=== PATIENT | female | born 1985 | race Caucasian/White ===

== ENCOUNTER 2017-07-14 06:06 | Day surgery (SDC) | payer OTHER ==
[2017-07-05 13:09] VITALS: BMI 27.1
[2017-07-14] MEDS ORDERED: DEXAMETHASONE SOD PHOSPHATE/PF 10 MG/ML SDV ONE (06:38)
[2017-07-14] MEDS ORDERED: SUCCINYLCHOLINE CHLORIDE 200 MG/10 ML VIAL ONE (06:41)
[2017-07-14] MEDS ORDERED: MIDAZOLAM HCL 2 MG/2 ML SINGLE DOSE VIAL ONE ×2 (06:41)
[2017-07-14] MEDS ORDERED: ONDANSETRON 4 MG/2 ML VIAL ONE (06:44)
[2017-07-14] MEDS ORDERED: DEXAMETHASONE SOD PHOSPHATE 4 MG/1 ML VIAL ONE (06:44)
[2017-07-14] MEDS ORDERED: LIDOCAINE HCL/PF 2% SDV 5ML VIAL ONE (06:44)
[2017-07-14] MEDS ORDERED: KETOROLAC TROMETHAMINE 30 MG/1 ML VIAL ONE (06:44)
[2017-07-14] MEDS ORDERED: LACTATED RINGERS SOLUTION 1,000 ML IV SCH (07:00)
[2017-07-14] MEDS ORDERED: oxyCODONE HCL 5 MG TABLET PO PRN ×2 (07:00)
[2017-07-14] MEDS ORDERED: ONDANSETRON 4 MG/2 ML VIAL IVPUSH PRN (07:00)
[2017-07-14] MEDS ORDERED: PROPOFOL 20 ML ONE ×2 (07:50)
[2017-07-14] MEDS ORDERED: CLINDAMYCIN PHOSPHATE 600 MG/4 ML VIAL ONE (07:53)
--- NOTE | 2017-07-14 09:22 | OP ---
Operative Note - Note: Operative Date: 07/14/17 Pre-Operative Diagnosis: right unstable ankle fracture Operation: right ankle open reduction internal fixation Implants: arthrex 2.7 lag screws. distal fibular plate with 2.7 locking and 3.5mm nonlocking screws Post-Operative Diagnosis: Same as Pre-op Surgeon: [employer] Tutor: Raghav Ward Anesthesiologist/CUPOLA REPAIRER: Cal Pruitt Anesthesia: Spinal Operative Report Dictated: Yes
--- NOTE | 2017-07-14 10:58 | OP ---
DATE OF OPERATION: 07/14/2017 PREOPERATIVE DIAGNOSIS: Right unstable ankle fracture. POSTOPERATIVE DIAGNOSIS: Right unstable ankle fracture. PROCEDURE: Right ankle open reduction and internal fixation. SURGEON: Juanpablo Sahu MD PLASTIC BLOCK BOILER RELINER: Raghav Ward MD, whose skillful assistance was necessary for the safe and timely performance of this procedure. Dr. Ward was able to help provide limb positioning, assist in retraction, fracture reduction as well as fracture fixation, and the insertion of orthopedic fixation hardware. ANESTHESIA: Spinal plus regional. POSTOPERATIVE CONDITION: Stable. COMPLICATIONS: None. IMPLANTS: Arthrex distal fibular plate with 2.7 lag screw and a 3.5-mm non- locking proximal and 2.7-mm locking distal screws. TOURNIQUET TIME: 48 minutes. INDICATION: This is a pleasant young lady who had injured her right ankle. X- rays demonstrated an ankle fracture with widening of the medial clear space consistent with instability. Treatment options were discussed including nonoperative care with closed reduction and casting with a potential for post-traumatic arthrosis and malunion. We discussed that in unstable-type fractures, open treatment is generally preferred. This allows for anatomic reduction, less chance of post-traumatic arthrosis. We discussed operative risks in detail including bleeding, infection , neurovascular injury, need for further surgery, postoperative pain and stiffness , nonunion, malunion, hardware failure or cut-out. We discussed medical risks such as heart attack, stroke, DVT, PE and . I addressed all the patient's questions and concerns. She voiced understanding and elected to proceed. DESCRIPTION OF PROCEDURE: The patient was brought to the operating room where spinal anesthesia was administered. She had been given a preoperative block in the preoperative holding area. The right lower extremity was now prepped and draped in the usual sterile fashion. A preoperative dose of antibiotics was given, and the usual timeout procedure was performed. At this point, incision was marked out over the fibula. The skin incision was then carried down through skin to subcutaneous tissue. Blunt spreading was used to expose the fascia over the fibula, which was then split in line with its fibers. The periosteum was now elevated both anteriorly and posteriorly, exposing the fracture site. The fracture site was now debrided of any loose debris and then irrigated. The fracture was now reduced using fracture reduction forceps. A single 2.7 lag screw was placed in the anterior-to- posterior direction. This was able to stabilize the fracture. Fracture reduction forceps were now removed. A neutralization plate was then chosen and applied to the side of the fibula. This was affixed to the bone proximally using 3.5-mm bicortical screws. Distally, 2.7-mm unicortical screws were used. The entire construct was now examined both visually and fluoroscopically. Both fracture reduction and hardware placement were satisfactory. The ankle was passed through an external rotation stress test and was found to be stable. The ankle was now copiously irrigated. The deep tissue was approximated using 0 Vicryl. The subcutaneous tissue was approximated using 3-0 Vicryl. The skin was closed using 3-0 nylon. Sterile dressings were placed. Patient was transferred to recovery room in stable condition. Gin [id number] MTDD
[2017-07-14 11:15] VITALS: TEMP 97.8
[2017-07-14 11:17] VITALS: BP 131/82
[2017-07-14 12:13] VITALS: PULSE 94
== END 2017-07-14 12:00 | disposition home or self-care (01) ==
LOC: FASU 06:06
PROVIDERS: ATTEND Orthopaedic Surgery Sports Medicine
PROC: 0QSJ04Z Reposition Right Fibula with Internal Fixation Device, Open Approach (ICD-10-PCS; principal; 2017-07-14 08:13)
DX: S82.61XA Displaced fracture of lateral malleolus of right fibula, initial encounter for closed fracture (principal); X58.XXXA Exposure to other specified factors, initial encounter; Y93.9 Activity, unspecified; Y92.9 Unspecified place or not applicable
CPT/HCPCS: 73610-TC-RT-FY; 84703; 94760